=== PATIENT | female | born 1940 | race Caucasian/White ===

== ENCOUNTER → 2019-04-17 | Outpatient (CLI) | payer OTHER | LOC: RAD 09:32 | DX: D86.0 Sarcoidosis of lung (principal); R13.10 Dysphagia, unspecified ==

== ENCOUNTER → 2019-04-27 | Outpatient (CLI) | payer OTHER | LOC: RAD 10:32 → SPEECH 14:31 | PROVIDERS: Internal Medicine | DX: D86.0 Sarcoidosis of lung (principal); R13.12 Dysphagia, oropharyngeal phase; R91.8 Other nonspecific abnormal finding of lung field; J90 Pleural effusion, not elsewhere classified ==

== ENCOUNTER → 2019-06-16 | Outpatient (CLI) | payer OTHER | LOC: SJCVC 15:02 | DX: I45.10 Unspecified right bundle-branch block (principal); R94.31 Abnormal electrocardiogram [ECG] [EKG]; E78.5 Hyperlipidemia, unspecified; D86.9 Sarcoidosis, unspecified; Z79.899 Other long term (current) drug therapy ==

== ENCOUNTER → 2019-08-10 | Outpatient (CLI) | payer OTHER ==
[~2019-08-10] MED LIST: ADULT ASPIRIN R81 MG PO; ANORO ELLIPTA1 EACH INH; CELEXA 20 MG TA20 MG PO; CLARITIN10 M3 PO; FIORINAL 50-321 EACH PO; FUROSEMIDE 40 M40 MG PO; IMDUR 30 MG TAB30 M1 PO; IMITREX 50 MG T50 MG PO; LIPITOR 20 MG T20 M1 PO; MECLIZINE HCL25 M1 PO; NITROSTAT0.4 M1 SUBLING; POTASSIUM20 PO; PREDNISONE 5 MG5 M1 PO; PROAIR HFA8.5 GM INH; PROCHLORPERAZIN10 MG PO; TRAZODONE HCL100 MG PO; VITAMIN D31250 MCG PO
== END ==
LOC: SJCVCIMAG 07-08 08:21
DX: I34.0 Nonrheumatic mitral (valve) insufficiency (principal); I51.7 Cardiomegaly; D86.9 Sarcoidosis, unspecified; Z79.82 Long term (current) use of aspirin; Z79.899 Other long term (current) drug therapy; M85.80 Other specified disorders of bone density and structure, unspecified site

== ENCOUNTER → 2019-08-13 | Outpatient (CLI) | payer OTHER ==
[~2019-08-13] VITALS: Ht 154.9 cm; Wt 70.3 kg
[2019-08-13 08:53] VITALS: BP 128/54
[2019-08-13 08:53] LABS: HEMATOCRIT 39.2 % (37.0-47.0); HEMOGLOBIN 13.5 gm/dL (12.0-15.0); MCH 31.6 pg (26.0-34.0); MCHC 34.4 g/dL (28.0-37.0); MCV 91.8 fL (80.0-100.0); RBC 4.27 mil/uL (4.20-5.00); RDW 14.1 % (10.5-14.5); WBC 7.4 thou/uL (4.0-11.0)
[2019-08-13 10:15] LABS: CALCIUM 8.8 mg/dL (8.5-10.1); POTASSIUM 3.8 mmol/L (3.5-5.1)
--- NOTE | 2019-08-19 13:03 | CATHLAB ---
[facility] [place] [address] INVASIVE PROCEDURE REPORT Name: KELLEY HOLLOWAY Room #: REG LEON Julio Cesar#: [id number] Admission: 08/13/19 Attend Phys: Jatin Carlin Discharge: Date of : 44 Report #: [id number] THIS REPORT FOR: cc: Josi Virk MD, Nora P. MD Lammoglia, Francisco J. MD ~ APPROVED REPORT Study performed: 08/13/2019 09:34:05 Patient Details Patient Status: Out-Patient Room #: The patient is a 79 year-old female Event Personnel Jatin Carlin Taping Machine Operator, Lisa Nguyen RN, Micha Marte RTR ScrRory vora Sherra RTJarrod Monitor Procedures Performed Art Access - R femoral artery* Left Heart Cath w/or w/o Coronaries [id number] [facility] [id number] Initial Mod Sed Same Phys/QHP Gr [id number] Mod Sed Same Phys/QHP Ea [id number] Hemostasis with Manual pressure, supervision of conscious sedation Indication Positive stress test, Chest pain Procedure Narrative The Right Groin^ was infiltrated with 1% Lidocaine subcutaneous anesthesia. A PINNACLE 4FR Sheath #[id number] sheath was inserted into the RFA^. Coronary angiography was performed using coronary diagnostic catheters. The right coronary system was accessed and visualized with a JR4 catheter. The left coronary system was accessed and visualized with a JL4 catheter. The left ventricle was accessed and visualized with a PIGTAIL catheter. Hemostasis was obtained with manual pressure following sheath removal without any complications. The patient tolerated the procedure well and there were no complications associated with the procedure. There was no hematoma. Intraoperative Conscious Sedation Sedation start time: 1013 Case end Time: 1040 Versed 2 mg [facility] [address] [place] [address] INVASIVE PROCEDURE REPORT Name: KELLEY HOLLOWAY Room #: REG Julio Cesar#: [id number] Admission: 08/13/19 Attend Phys: Jatin Lamb Discharge: Date of : 44 Report #: [id number] Fluoro Time: 4.00 minutes Dose: DAP 5325.00 cGycm2 939 mGy Contrast Type and Amount: Omnipaque 45 ml Coronary Angiography The patient's coronary anatomy is right dominant. Diagnostic Cath Left Main Normal origin moderate caliber bifurcates left anterior descending left circumflex free of high-grade disease LAD Small to moderate caliber type II vessel which courses in the interventricular sulcus. Gives rise to an early diagonal branch which is free of high-grade disease. And continues on any sulcus towards the apex giving rise to small septal and diagonal branches free of high-grade disease. In its midportion there appears to be a myocardial bridge as an incidental finding Diagonal 1 Small caliber vessel without high-grade lesion although there is an ostial tapering it is not significant. No obstructive lesions are noted Circumflex Large-caliber vessel gives rise of marginal branches of moderate-sized proximally then continues on to the posterior lateral aspect of the heart giving rise to a smaller marginal branch and terminates a small posterior wall vessel. There is luminal irregularities noted but no high-grade lesions Right Coronary Large-caliber vessel normal origin gives rise to early sinus node branch is free of high-grade disease. Continues in the AV groove to the acute margin with a small to moderate caliber RV marginal branch arises coursing along the left lateral aspect of the right ventricular margin free of high-grade disease. The RCA proper continues at the crux of the heart gives rise to a moderate caliber posterior descending artery that rapidly tapers in its distal third but is free of high-grade disease. RCA then terminates in a small posterior wall branch artery to the AV node R PDA Moderate caliber vessel without high-grade lesions noted Left Ventriculography Left Ventriculography was not performed. Hemodynamics The aortic pressure is 126/59 mmHg with a mean of 81 mmHg. The left ventricular pressure is 184/15 mmHg with a mean of mmHg. The left ventricular end diastolic pressure is 21 mmHg. Conclusion 1. 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 Normal hemodynamics Recommendations Cardiac Risk Reduction Program Medical Therapy <ELECTRONICALLY SIGNED> By: Jatin Carlin MD 08/19/19 1301 00 130 Jatin Carlin MD /INF
== END | disposition home or self-care (01) ==
LOC: CATH 07:56
PROVIDERS: Internal Medicine
DX: R07.9 Chest pain, unspecified (principal); R94.39 Abnormal result of other cardiovascular function study; E78.00 Pure hypercholesterolemia, unspecified; G43.909 Migraine, unspecified, not intractable, without status migrainosus; J44.9 Chronic obstructive pulmonary disease, unspecified; M85.80 Other specified disorders of bone density and structure, unspecified site; Z98.890 Other specified postprocedural states; Z79.899 Other long term (current) drug therapy; Z86.73 Personal history of transient ischemic attack (TIA), and cerebral infarction without residual deficits; Z87.442 Personal history of urinary calculi; Z90.710 Acquired absence of both cervix and uterus; Z79.82 Long term (current) use of aspirin

== ENCOUNTER → 2019-09-08 | Outpatient (CLI) | payer OTHER | LOC: SJCVC 14:03 | DX: R07.9 Chest pain, unspecified (principal); R06.09 Other forms of dyspnea; E78.5 Hyperlipidemia, unspecified; D86.9 Sarcoidosis, unspecified; F41.9 Anxiety disorder, unspecified; G47.00 Insomnia, unspecified; Z90.710 Acquired absence of both cervix and uterus; Z79.899 Other long term (current) drug therapy ==

== ENCOUNTER 2020-04-04 12:49 | Inpatient (IN) | payer OTHER ==
[~2020-04-04] VITALS: Ht 157.5 cm; Wt 74.8 kg
[2020-04-04 12:55] VITALS: BP 159/56
[2020-04-04 14:19] LABS: ABSOLUTE NEUTROPHILS 9.3 thou/uL (1.4-8.2); HEMATOCRIT 39.5 % (37.0-47.0); HEMOGLOBIN 13.5 gm/dL (12.0-15.0); LYMPHOCYTES 2.2 % (24.0-44.0); MCH 30.2 pg (26.0-34.0); MCHC 34.2 g/dL (28.0-37.0); MCV 88.4 fL (80.0-100.0); PLATELET COUNT 268 thou/uL (150-400); POLYS 91.8 % (36.0-66.0); RBC 4.47 mil/uL (4.20-5.00); RDW 13.1 % (10.5-14.5); WBC 10.1 thou/uL (4.0-11.0)
[2020-04-04 14:42] LABS: CALCIUM 9.6 mg/dL (8.5-10.1); CREATININE 0.9 mg/dL (0.6-1.0); POTASSIUM 3.4 mmol/L (3.5-5.1)
[2020-04-04 14:47] LABS: ALBUMIN 3.1 g/dL (3.4-5.0); DIRECT BILIRUBIN 0.1 mg/dL (<0.1-0.2); TOTAL BILIRUBIN 0.6 mg/dL (0.2-1.0)
[2020-04-04 15:17] LABS: URINE BILIRUBIN NEGATIVE (Negative); URINE BLOOD 2+ (Negative); URINE COLOR YELLOW; URINE GLUCOSE-RANDOM* NEGATIVE (Negative); URINE KETONES 1+ (Negative); URINE NITRITE-REFLEX NEGATIVE (Negative); URINE PROTEIN (DIPSTICK) 2+ (Negative); URINE SPECIFIC GRAVITY >= 1.030 (1.005-1.035); URINE UROBILINOGEN 0.2 E.U./dl (0.2-1.0)
[2020-04-04 15:18] LABS: URINE LEUKOCYTES-REFLEX 3+ (Negative)
[2020-04-04 15:19] LABS: URINE CLARITY HAZY
[2020-04-04 15:46] LABS: SQUAMOUS 0-3 Few /LPF (0-3); URINE WBC-REFLEX >25 Many /HPF (0-5)
[2020-04-04 15:47] LABS: CASTS None Seen /LPF (None Seen); CRYSTALS None Seen /LPF (None Seen); URINE RBC 3-10 Few /HPF (0-2)
[2020-04-05 04:13] LABS: HEMATOCRIT 38.3 % (37.0-47.0); HEMOGLOBIN 12.9 gm/dL (12.0-15.0); MCH 29.9 pg (26.0-34.0); MCHC 33.8 g/dL (28.0-37.0); MCV 88.3 fL (80.0-100.0); RBC 4.33 mil/uL (4.20-5.00); RDW 13.1 % (10.5-14.5); WBC 3.8 thou/uL (4.0-11.0)
[2020-04-05 04:18] LABS: CALCIUM 9.4 mg/dL (8.5-10.1); CREATININE 0.8 mg/dL (0.6-1.0); MAGNESIUM 2.1 mg/dL (1.8-2.4); POTASSIUM 3.5 mmol/L (3.5-5.1)
[2020-04-05 08:00] VITALS: BP 135/48
[2020-04-05 12:58] VITALS: BP 114/46
--- NOTE | 2020-04-05 14:53 | NUR ---
79-year-old female with sarcoidosis. She was recently diagnosed with COVID-19 on March 28. 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 She sees Dr. Daniel De Guzman with pulmonary for her sarcoidosis. She states that today she started feeling very short of breath. She usually uses 2 L of oxygen however she saw that her sats went down to 79% after she got out of the shower. She increased her oxygen to 3 L however this did not bring up her oxygen level that much. She decided to come to the hospital. The patient was found by PCR to be COVID Positive, UA reveals greater than 25K WBC's, and WBC is 10.1. D-dimer is high at 1.48. CXR reveals: "Moderate bilateral perihilar mixed interstitial and alveolar infiltration, similar in pattern but progressed since May of 2106. Small left pleural effusion and normal heart size." The patient was admitted by hospitalist Dr. Alejandro for: Acute on chronic respiratory failure with bilateral infiltrates possibly from worsening sarcoidosis versus viral or bacterial infection. Consults for pulmonary have been called in. Plan is to administer IV Antibiotics, IV steroids, Remdesiver, Ivermectin and Respiratory breathing treatments. Sister Blanca Valenzuela as friend is listed as contact at [phone]. 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 Notably patient remains alert and oriented times 4. CM will follow for discharge needs.
[2020-04-05 16:25] VITALS: BP 120/50
[2020-04-05 18:51] VITALS: BP 124/61
[2020-04-05 20:06] VITALS: BP 141/52
[2020-04-05 20:34] VITALS: BP 158/76
--- NOTE | 2020-04-06 00:16 | NUR ---
PT ADMITTED FROM ED. 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 PT STATED THEY WERE TRANSFERRING A POSITIVE COVID PT, WITH PPE AND TESTED POSITIVE THE FOLLOWING DAY 03/28/20. PT REPORTED INCREASING SOA AND NEED TO INCREASE HER O2 NC FROM 2L TO 4L. LUNGS WITH WHEEZES COUGH. SOA WITH TALKING. INDEP STEADY GAIT. IV ANTIBIOTICS PROVIDED. STRESS INCONTINENCE FROM COUGHING. NEW IV STARTED IN LFA.
[2020-04-06 00:17] VITALS: BP 110/73
[2020-04-06 05:15] VITALS: BP 119/40
[2020-04-06 06:21] LABS: ABSOLUTE NEUTROPHILS 11.9 thou/uL (1.4-8.2); BASOPHILS 0.1 % (0.0-2.0); HEMATOCRIT 37.2 % (37.0-47.0); HEMOGLOBIN 12.5 gm/dL (12.0-15.0); LYMPHOCYTES 3.5 % (24.0-44.0); MCH 29.9 pg (26.0-34.0); MCHC 33.7 g/dL (28.0-37.0); MCV 88.8 fL (80.0-100.0); MONOCYTES 4.9 % (1.0-8.0); PLATELET COUNT 343 thou/uL (150-400); POLYS 91.5 % (36.0-66.0); RBC 4.19 mil/uL (4.20-5.00); RDW 13.5 % (10.5-14.5)
[2020-04-06 06:42] LABS: PROTIME 10.5 Seconds (9.3-11.4)
[2020-04-06 06:47] LABS: ALBUMIN 2.6 g/dL (3.4-5.0); CALCIUM 9.1 mg/dL (8.5-10.1); CREATININE 0.8 mg/dL (0.6-1.0); POTASSIUM 3.5 mmol/L (3.5-5.1); TOTAL BILIRUBIN 0.2 mg/dL (0.2-1.0); TOTAL PROTEIN 6.3 g/dL (6.4-8.2)
[2020-04-06 06:52] LABS: DIRECT BILIRUBIN < 0.1 mg/dL (<0.1-0.2); MAGNESIUM 2.5 mg/dL (1.8-2.4); PHOSPHORUS 3.5 mg/dL (2.6-4.7)
[2020-04-06 08:34] VITALS: BP 134/46
--- NOTE | 2020-04-06 10:23 | NUR ---
ORDERS RECEIVED FOR EVAL AND TREAT. SPOKE WITH Pt AND SHE STATES SHE IS GETTING UP ON HER OWN IN THE ROOM AND HAVING NO DIFFICULTY. STATES SHE IS VERY ACTIVE AND IS DETERMINED TO STAY ACTIVE. Pt IS DECLINING A FORMAL P.T. EVAL STATING SHE DOESN'T NEED IT BUT WILL LET NURSING KNOW IF SHE STARTS HAVING ANY PROBLEMS
--- NOTE | 2020-04-06 15:20 | NUR ---
INITIAL ASSESSMENT: Received consult. SW reviewed chart and spoke with nursing and attending physician. Pt was admitted from home due to pneumonia. Pt placed in Enhanced Isolation due to COVID-19. Pt is afebrile and on 2L of O2. Pt is on IV abx and IV steroids. Pt is completing courses of Remdesivir and Ivermectin. SW placed call to pt's room. No answer. Per chart, pt is alert/orientated x 4. 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 Prior to admission, pt was independent with ADLs. Pt does have home O2. Pt's PCP is Dr. Josi Virk. Pt sees Dr. Jan De Guzman for pulmonology. Plan is for pt to discharge home when medically stable. SW will follow up with pt to discuss discharge plan.
[2020-04-06 15:45] VITALS: BP 111/56
--- NOTE | 2020-04-06 18:36 | NUR ---
ASSUMED PATIENT CARE AT 0700. SOB WITH EXERTION. A/O X4. SLOWLY TOWARDS TO POC GOALS.
[2020-04-06 19:45] VITALS: BP 133/61
--- NOTE | 2020-04-06 22:00 | NUR ---
PT INCREASE IN COARSE LUNG SOUNDS AND WHEEZING AFTER AMBULATION TO RESTROOM AND WHILE TALKING. 02 PER NC 4L. PT DECLINED HS SNACK. PROIVDER UPDATED.
--- NOTE | 2020-04-07 00:33 | NUR ---
ID UPDATED DURING HIS ROUNDS RE PTS LUNG SOUNDS. NEW ORDERS OBTAINED. PROVIDER ESTATE PLANNER UPDATED REGARDING NEW ORDERS. PT REQUESTING PRN FOR ANXIETY AND HOME MED RESTARTED, PROVIDER LEFT VOICE MAIL.
[2020-04-07 04:54] VITALS: BP 131/58
[2020-04-07 06:38] LABS: ABSOLUTE NEUTROPHILS 7.7 thou/uL (1.4-8.2); BASOPHILS 0.1 % (0.0-2.0); HEMATOCRIT 35.3 % (37.0-47.0); LYMPHOCYTES 1.3 % (24.0-44.0); MCHC 33.9 g/dL (28.0-37.0); MCV 88.4 fL (80.0-100.0); MONOCYTES 5.1 % (1.0-8.0); PLATELET COUNT 334 thou/uL (150-400); POLYS 93.5 % (36.0-66.0); RDW 13.3 % (10.5-14.5); WBC 8.3 thou/uL (4.0-11.0)
[2020-04-07 06:56] LABS: ALBUMIN 2.6 g/dL (3.4-5.0); DIRECT BILIRUBIN < 0.1 mg/dL (<0.1-0.2); MAGNESIUM 2.4 mg/dL (1.8-2.4); PHOSPHORUS 3.5 mg/dL (2.6-4.7); SGOT 19 U/L (15-37); SGPT 18 U/L (14-59); TOTAL BILIRUBIN 0.3 mg/dL (0.2-1.0); TOTAL PROTEIN 5.9 g/dL (6.4-8.2)
[2020-04-07 06:57] LABS: ALBUMIN 2.6 g/dL (3.4-5.0); CALCIUM 8.7 mg/dL (8.5-10.1); CREATININE 0.8 mg/dL (0.6-1.0); TOTAL BILIRUBIN 0.2 mg/dL (0.2-1.0); TOTAL PROTEIN 5.9 g/dL (6.4-8.2)
[2020-04-07 07:04] LABS: POTASSIUM 2.8 mmol/L (3.5-5.1)
[2020-04-07 07:42] VITALS: BP 144/53
--- NOTE | 2020-04-07 15:00 | NUR ---
SW reviewed chart and spoke with nursing and attending physician. Pt remains in Enhanced Isolation due to COVID-19. Pt is afebrile and requiring 3L of O2. Pt is on IV abx and IV steroids. Pt is completing courses of Remdesivir and Ivermectin. No weekend discharge planned. SW placed call into pt's room. No answer. LASHON is following to assist as needed with discharge planning.
[2020-04-07 15:47] VITALS: BP 136/58
--- NOTE | 2020-04-07 18:28 | NUR ---
PATIENT A/O X4. INCREASED SOB AND WHEZZY. VSS. ON 4L/NC. WILL KEEP MONITOR.
[2020-04-07 21:18] VITALS: BP 131/54
--- NOTE | 2020-04-08 04:15 | NUR ---
resting quietly tonight. she has been laying in a prone postion for breathing. denies pain. continues on iv antibiotic. took her last dose of ivermectin tongtsering. encouraged questions and explained treaments. jose reviewed/
[2020-04-08 04:58] VITALS: BP 153/62
[2020-04-08 07:13] VITALS: BP 105/93
[2020-04-08 09:27] LABS: HEMATOCRIT 37.7 % (37.0-47.0); HEMOGLOBIN 12.7 gm/dL (12.0-15.0); MCHC 33.7 g/dL (28.0-37.0); MCV 89.1 fL (80.0-100.0); RBC 4.23 mil/uL (4.20-5.00); RDW 13.8 % (10.5-14.5); WBC 9.3 thou/uL (4.0-11.0)
[2020-04-08 09:43] LABS: ANION GAP 12 mmol/L (7-16); BUN 26 mg/dL (7-18); CALCIUM 9.2 mg/dL (8.5-10.1); CHLORIDE 105 mmol/L (98-107); CO2 26 mmol/L (21-32); CREATININE 0.9 mg/dL (0.6-1.0); DIRECT BILIRUBIN < 0.1 mg/dL (<0.1-0.2); GLUCOSE 202 mg/dL (74-106); MAGNESIUM 2.7 mg/dL (1.8-2.4); PHOSPHORUS 2.7 mg/dL (2.5-4.9); POTASSIUM 3.7 mmol/L (3.5-5.1); SGOT 20 U/L (15-37); SGPT 27 U/L (30-65); SODIUM 143 mmol/L (136-145); TOTAL BILIRUBIN 0.4 mg/dL (0.2-1.0); TOTAL PROTEIN 6.4 g/dL (6.4-8.2)
[2020-04-08 15:42] VITALS: BP 141/61
--- NOTE | 2020-04-08 18:33 | NUR ---
PROGRESSING TOWARDS POC GOALS.
[2020-04-08 19:56] VITALS: BP 151/66
--- NOTE | 2020-04-08 21:05 | HC ---
[facility] [place] [address] CONSULTATION Name: KELLEY HOLLOWAY Room #: 358-P ADM IN M.R.#: [id number] Admission: 04/04/20 Attend Phys: Theron Alejandro MD Discharge: Date of : 44 Report #: [id number] THIS REPORT FOR: cc: Josi Virk MD, Nora P. MD Geha, Daniel J. MD ~ DATE OF SERVICE: 04/05/2020 INFECTIOUS DISEASE CONSULTATION REASON FOR CONSULTATION: I was asked to evaluate concerning COVID-19 pneumonia. 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 She has underlying sarcoidosis of the lungs, on 10 mg of prednisone a day with good control. She is on 2 liters of oxygen per nasal cannula as her baseline. She has had increased shortness of breath, nonproductive cough, anorexia, diarrhea, mild abdominal discomfort and 1 episode of vomiting. Her cough has been without hemoptysis. No chest pain. Mild headache. No loss of taste or smell. Denies any rash or arthritis. Several members of her senior care resident, ____ and employees have come down with COVID-19. REVIEW OF SYSTEMS: A 14-point review of system was negative other than what has been described above. ALLERGIES: None known. MEDICATIONS: As noted on her MAR, having been started on antiviral program and corticosteroids have been increased. PAST MEDICAL HISTORY: Sarcoidosis, decreased hearing, hyperlipidemia, kidney stones, migraine headaches, osteopenia, prediabetic, PE, vertigo, hysterectomy, open lung biopsy. FAMILY HISTORY: Negative for tuberculosis. SOCIAL HISTORY: Nonsmoker, no significant alcohol intake. PHYSICAL EXAMINATION: VITAL SIGNS: Afebrile and hemodynamically stable. GENERAL: Alert and cooperative. She was in no distress, sitting up in bed. She did become short of breath with talking. She was of normal weight. SKIN: Without rash. No palpable adenopathy. EYES: Without scleral icterus. MOUTH: Without mucositis. [facility] [address] [place] [address] CONSULTATION Name: KELLEY HOLLOWAY Room #: 358-P [facility] IN .R.#: [id number] Admission: 04/04/20 Attend Phys: Theron Alejandro MD Discharge: Date of : 44 Report #: [id number] NECK: Supple. LUNGS: Coarse breath sounds posteriorly throughout her lung adorno. No other adventitial sounds. HEART: Regular, without murmur, gallop or rub. ABDOMEN: Soft, nontender with no hepatosplenomegaly or mass. GENITORECTAL: Not performed. EXTREMITIES: Without clubbing, cyanosis or edema. NEUROLOGIC: Cranial nerves intact. Strength in the upper and lower extremities was within normal limits and symmetric. LABORATORY STUDIES: Reviewed. MICROBIOLOGY: Reviewed. IMAGING: Chest x-ray reviewed. IMPRESSION: 1. COVID-19 pneumonia complicating underlying sarcoidosis with worsening oxygenation and generalized weakness. 2. Immunosuppressed due to corticosteroids for her sarcoidosis. 3. History of pulmonary embolus. 4. Hypokalemia. RECOMMENDATION: We will continue current antibiotic program in addition to her antiviral therapy with increased corticosteroids. I have discussed treatment options with her. We will plan to go with steroids, remdesivir, ivermectin and multivitamins. We will follow serial chest x-ray. Follow laboratory studies including creatinine and liver function test. The patient will remain on the COVID isolation unit for cardiopulmonary monitoring. <ELECTRONICALLY SIGNED> By: Johnathan Holden MD 04/08/20 2105 [id number] Johnathan Holden MD /nt
--- NOTE | 2020-04-09 02:00 | NUR ---
ASSESSED AT START OF SHIFT. PT RESTING IN BED. A&OX4. ON 4L OF OXYGEN. PT STATED HAD [address] BM'[address] D[address]ING THE DAY. DR ELLSWORTH ORDERED SOME IMMODIUM. PT UP TO THE BSC. LUNGS SOUNDS WHEEZING. GETS SCHEDULED BREATHING TREATMENT. EVENING MEDS GIVEN AND PT RADHA IT WELL. CALL LIGHT AT REACH. CODE STATUS CHANGED TO INTUBATION ONLY AFTER PT DISCUSSED WITH DR ELLSWORTH. WILL CONT TO MONITOR TILL EOS.
[2020-04-09 04:02] VITALS: BP 148/67
[2020-04-09 06:03] LABS: ALBUMIN 2.8 g/dL (3.4-5.0); ANION GAP 9 mmol/L (7-16); BUN 25 mg/dL (7-18); CALCIUM 9.1 mg/dL (8.5-10.1); CHLORIDE 102 mmol/L (98-107); CO2 25 mmol/L (21-32); CREATININE 0.8 mg/dL (0.6-1.0); DIRECT BILIRUBIN < 0.1 mg/dL (<0.1-0.2); GLUCOSE 216 mg/dL (74-106); PHOSPHORUS 3.3 mg/dL (2.6-4.7); POTASSIUM 4.1 mmol/L (3.5-5.1); SGOT 21 U/L (15-37); SGPT 26 U/L (14-59); SODIUM 136 mmol/L (136-145); TOTAL BILIRUBIN 0.4 mg/dL (0.2-1.0); TOTAL PROTEIN 5.9 g/dL (6.4-8.2)
[2020-04-09 07:04] VITALS: BP 149/68
[2020-04-09 15:36] VITALS: BP 153/67
[2020-04-09 19:25] VITALS: BP 125/71
[2020-04-10 05:23] VITALS: BP 154/62
[2020-04-10 06:03] LABS: HEMATOCRIT 37.5 % (37.0-47.0); HEMOGLOBIN 12.7 gm/dL (12.0-15.0); MCHC 33.8 g/dL (28.0-37.0); MCV 88.9 fL (80.0-100.0); PLATELET COUNT 401 thou/uL (150-400); RBC 4.21 mil/uL (4.20-5.00); RDW 13.6 % (10.5-14.5); WBC 7.4 thou/uL (4.0-11.0)
--- NOTE | 2020-04-10 06:07 | NUR ---
VSS THROUGHOUT SHIFT, NO FEVER, AND PT 02 WAS AT 4L. PT UP AD KELBY. PT IS ILIAMNA. CALL LIGHT WITHIN REACH.
[2020-04-10 06:15] LABS: CALCIUM 9.2 mg/dL (8.5-10.1); CREATININE 0.8 mg/dL (0.6-1.0); MAGNESIUM 2.5 mg/dL (1.8-2.4); PHOSPHORUS 3.4 mg/dL (2.6-4.7); POTASSIUM 4.4 mmol/L (3.5-5.1)
[2020-04-10 07:23] VITALS: BP 142/123; BP 161/68
[2020-04-10 09:54] LABS: ABSOLUTE NEUTROPHILS 6.7 thou/uL (1.4-8.2); METAMYELOCYTES 4 %
[2020-04-10 09:55] LABS: ANISOCYTOSIS 1+
[2020-04-10 15:30] VITALS: BP 149/57
--- NOTE | 2020-04-10 18:01 | NUR ---
A #4F MIDLINE WAS PLACED PER PROTOCOL. LINE WAS TRIMMED TO 15 CM AND ADVANCED WITHOUT DIFFICULTY. THE LEFT MIDLINE WAS SECURED AND RELEASED FOR USE
[2020-04-10 20:05] VITALS: BP 173/85
[2020-04-11 03:33] VITALS: BP 156/61
[2020-04-11 04:05] LABS: GLYCOHEMOGLOBIN (HGB A1C) 6.3 % (4.8-5.6)
--- NOTE | 2020-04-11 07:07 | NUR ---
VSS, AFEBRILE. POC W/IVPB ANTIBIOTICS AND 02 SATURATION IS THE FOCUS. PT IS ON 4L VIA NC. PT REQUESTED LORAZEPAM AND STATES SHE IS STILL HAVING SOME EPISODES OF DIARRHEA. HOURLY ROUNDING.
[2020-04-11 07:38] VITALS: BP 168/68
--- NOTE | 2020-04-11 14:30 | NUR ---
Pt seen for LOS. Pt appears with fair to good appetite, consuming 50-100% of meals at present. Wt gain noted from admit (150-167#). No c/o GI distress, last BM 04/08/20. No PU noted. Pt remains at low nutrtition risk.
--- NOTE | 2020-04-11 14:39 | NUR ---
LASHON reviewed chart and spoke with nursing and attending physician. Pt remains in Enhanced Isolation due to COVID-19. Pt is afebrile and on 2L of O2. Pt is on IV abx and IV steroids. Discharge home is anticipated for tomorrow. LASHON spoke with pt via phone to discuss discharge. Pt is aware and agreeable with plan. Pt has a home O2 concentrator that she owns. Pt has a portable concentrator through [employer]. Pt states she will have transportation home when discharged. Pt declines having any other discharge needs. LASHON is following to assist as needed with discharge planning.
[2020-04-11 15:03] VITALS: BP 146/68
[2020-04-11 19:57] VITALS: BP 143/81
--- NOTE | 2020-04-11 21:41 | NUR ---
PT ALERT AND ORIENTED X4. VSS AFEBRILE. C/O DRY NOSE WITH SMALL AMT BLOOD TINGED DRAINAGE. NOTIFIED RT TO APPLY HUMIDIFED AIR TO TUBING. ATIVAN GIVEN FOR ANXIETY REQUESTED. PT IS RESTING QUIETLY. NO S/S DISTRESS.
[2020-04-12 04:15] VITALS: BP 132/84
--- NOTE | 2020-04-12 05:18 | NUR ---
PT ALERT AND ORIENTED X4 . VSS AFEBRILE. UNLABORED ON 4LNC. NO S/S DISTRESS.PT RESTING IN BED EATING PEACH YOGURT.OGRESSING TOWARDS D/C GOALS.
[2020-04-12 08:01] VITALS: BP 130/69
--- NOTE | 2020-04-12 14:19 | NUR ---
SW reviewed chart and spoke with nursing and attending physician. Pt remains in Enhanced Isolation due to COVID-19. Pt is afebrile and requiring 4L of O2. Pt is on IV abx and IV steroids. Pt is not ready for discharge home today. Anticipate discharge home tomorrow. LASHON is following to assist as needed with discharge planning.
[2020-04-12 15:25] VITALS: BP 125/75
[2020-04-12 19:23] VITALS: BP 130/72
--- NOTE | 2020-04-12 20:57 | NUR ---
PT UP IN CHAIR.O2 NC 4L. PT REMAINS SOA WITH TALKING AND EXERTION BUT NO AUDIBLE WHEEZES. LUNGS WHEEZES IN BASES. BLE EDEMA +3. PT VERBALIZED HAVING LASIX AND PLAN TO USE BSC. PT DISCUSSED POSSIBLE DC IN AM. PROVIDED HS SNACK.
[2020-04-13 03:25] VITALS: BP 133/67
--- NOTE | 2020-04-13 06:28 | NUR ---
CHIEF CLIENT OFFICER STATED COVID PATIENTS CAN NOT GO DOWN FOR A 2 VIEW SO HE IS COMPLETING A PCXR.
[2020-04-13 06:29] LABS: ABSOLUTE NEUTROPHILS 6.5 thou/uL (1.4-8.2); BASOPHILS 0.2 % (0.0-2.0); HEMATOCRIT 35.7 % (37.0-47.0); HEMOGLOBIN 12.2 gm/dL (12.0-15.0); LYMPHOCYTES 3.2 % (24.0-44.0); MCH 30.2 pg (26.0-34.0); MCHC 34.1 g/dL (28.0-37.0); MCV 88.6 fL (80.0-100.0); MONOCYTES 7.7 % (1.0-8.0); PLATELET COUNT 349 thou/uL (150-400); POLYS 88.9 % (36.0-66.0); RBC 4.03 mil/uL (4.20-5.00); RDW 13.3 % (10.5-14.5); WBC 7.3 thou/uL (4.0-11.0)
[2020-04-13 06:41] LABS: ALBUMIN 2.4 g/dL (3.4-5.0); CALCIUM 8.7 mg/dL (8.5-10.1); CREATININE 0.8 mg/dL (0.6-1.0); POTASSIUM 4.1 mmol/L (3.5-5.1); TOTAL BILIRUBIN 0.5 mg/dL (0.2-1.0)
[2020-04-13 07:26] VITALS: BP 122/72
[2020-04-13] MEDS ORDERED: PEPCID20 MG PO (10:23)
[2020-04-13] MEDS ORDERED: VITAMIN B-1100 M2 PO (10:23)
[2020-04-13] MEDS ORDERED: MUCINEX600 MG PO (10:23)
[2020-04-13] MEDS ORDERED: METOPROLOL TART25 MG PO (10:23)
[2020-04-13] MEDS ORDERED: ACEROLA C500 MG PO (10:23)
[2020-04-13] MEDS ORDERED: LORAZEPAM 0.50.5 MG PO (10:23)
[2020-04-13] MEDS ORDERED: IPRAT-ALBUT 0.5-3 ML INH (10:23)
[2020-04-13] MEDS ORDERED: LEVOFLOXACIN500 MG PO (10:23)
[2020-04-13] MEDS ORDERED: ZINC SULFATE 2220 MG PO (10:23)
[2020-04-13] MEDS ORDERED: PREDNISONE 20 M20 MG PO (10:31)
[2020-04-13 14:47] VITALS: BP 122/72
--- NOTE | 2020-04-13 14:56 | NUR ---
SW reviewed chart and spoke with nursing and attending physician. Pt remains in Enhanced Isolation due to COVID-19. Pt is medically stable for discharge home today. SW placed call to pt's room. No answer. Pt will have transportation home when discharged. No SW needs identified at this time, but is available to assist should needs arise.
[2020-04-13 15:01] VITALS: BP 122/72
[2020-04-13] MEDS ORDERED: NEBULIZER MISCELL ×7 (15:31→15:50)
== END 2020-04-13 16:44 | disposition home or self-care (01) | DRG 871 ==
LOC: ER 12:49 → 3W 17:02 → EROBS 17:02 → 3W 04-05 20:04
PROVIDERS: Internal Medicine; Nurse Practitioner; Specialist; ADMIT Internal Medicine; ATTEND Internal Medicine
PROC: XW033E5 Introduction of Remdesivir Anti-infective into Peripheral Vein, Percutaneous Approach, New Technology Group 5 (ICD-10-PCS; principal; 2020-04-05)
PROC: 05HC33Z Insertion of Infusion Device into Left Basilic Vein, Percutaneous Approach (ICD-10-PCS; 2020-04-10)
DX: A41.89 Other specified sepsis (principal); U07.1 COVID-19; J12.82 Pneumonia due to coronavirus disease 2019; J96.21 Acute and chronic respiratory failure with hypoxia; E44.1 Mild protein-calorie malnutrition; N39.0 Urinary tract infection, site not specified; D84.9 Immunodeficiency, unspecified; D86.9 Sarcoidosis, unspecified; E78.00 Pure hypercholesterolemia, unspecified; G43.909 Migraine, unspecified, not intractable, without status migrainosus; F34.1 Dysthymic disorder; E78.5 Hyperlipidemia, unspecified; E87.6 Hypokalemia; F32.9 Major depressive disorder, single episode, unspecified; F41.9 Anxiety disorder, unspecified; R73.9 Hyperglycemia, unspecified; T38.0X5A Adverse effect of glucocorticoids and synthetic analogues, initial encounter; Y92.89 Other specified places as the place of occurrence of the external cause; Z87.442 Personal history of urinary calculi; Z90.710 Acquired absence of both cervix and uterus; Z86.711 Personal history of pulmonary embolism; Z79.82 Long term (current) use of aspirin; Z79.899 Other long term (current) drug therapy; Z68.30 Body mass index [BMI] 30.0-30.9, adult
CPT/HCPCS: 10879; 27000

== ENCOUNTER → 2020-05-05 | Outpatient (CLI) | payer OTHER ==
[~2020-05-05] MED LIST changes: +ACEROLA C500 MG PO; +IPRAT-ALBUT 0.5-3 ML INH; +LEVOFLOXACIN500 MG PO; +LORAZEPAM 0.50.5 MG PO; +METOPROLOL TART25 MG PO; +MUCINEX600 MG PO; +NEBULIZER MISCELL; +PEPCID20 MG PO; +PREDNISONE 20 M20 MG PO; +VITAMIN B-1100 M2 PO; +ZINC SULFATE 2220 MG PO
== END ==
LOC: RAD 16:31
PROVIDERS: ATTEND Internal Medicine
DX: M48.02 Spinal stenosis, cervical region (principal); R07.81 Pleurodynia; D86.9 Sarcoidosis, unspecified

== ENCOUNTER → 2020-05-30 | Outpatient (CLI) | payer OTHER | LOC: MRI 10:29 | PROVIDERS: ATTEND Family Medicine | DX: S22.080A Wedge compression fracture of T11-T12 vertebra, initial encounter for closed fracture (principal); R93.7 Abnormal findings on diagnostic imaging of other parts of musculoskeletal system; X58.XXXA Exposure to other specified factors, initial encounter; Y93.89 Activity, other specified; Y92.89 Other specified places as the place of occurrence of the external cause; Y99.8 Other external cause status ==

== ENCOUNTER → 2020-06-28 | Outpatient (CLI) | payer OTHER | LOC: CAT 09:32 | PROVIDERS: ATTEND Internal Medicine | DX: J90 Pleural effusion, not elsewhere classified (principal); R91.8 Other nonspecific abnormal finding of lung field; R59.0 Localized enlarged lymph nodes; I31.1 Chronic constrictive pericarditis; D86.9 Sarcoidosis, unspecified; Z86.16 Personal history of COVID-19 ==

== ENCOUNTER → 2020-08-02 | Outpatient (CLI) | payer OTHER ==
--- NOTE | ~2020-08-02 | PFR/MVV ---
[facility] [place] [address] PULMONARY FUNCTION MVV/REPORT Name: KELLEY HOLLOWAY Room #: REG [facility].#: [id number] Admission: 08/02/20 Attend Phys: Daniel De Guzman MD Discharge: Date of : 44 Report #: [id number] THIS REPORT FOR: //name// >> SPIROMETRY: (BTPS) Height: 65 in cm Weight: 62 lbs kg Exam Date: 08/02/20 PRE-RX POST-RX PRED BEST %PRED BEST %PRED %CHG FVC LITERS . 2.75 . 1.95 . 71 . 2.05 . 75 . 5 FEV1 LITERS . 1.90 . 1.46 . 77 . 1.45 . 76 . -1 FEV1/FVC % . 70 . 75 . 107 . 71 . 101 . -6 OVX06-53% L/Sec . 2.11 . 1.18 . 56 . 0.69 . 33 . -41 PEF L/SEC . 5.40 . 3.86 . 72 . 4.42 . 82 . 14 FEF50/FIF50 UNITLESS . <1.00 . 0.99 . . 0.72 . . -27 MVV L/Min . 78 . 61 . 78 f 1/Min . . 115 . >> LUNG VOLUMES: (BTPS) PRE-RX POST-RX PRED AVG %PRED AVG %PRED %CHG VC Liters . 2.75 . 5.64 . 205 . . . TLC Liters . 4.95 . 7.05 . 142 . . . RV Liters . 2.09 . 1.41 . 68 . . . RV/TLC % . 42 . 20 . 47 . . . FRC PL Liters . 3.56 . 2.00 . 56 . . . FRC N2 Liters . 3.56 . . . . . ERV Liters . 0.93 . 0.58 . 62 . . . IC Liters . 1.87 . 5.61 . 301 . . . >> DIFFUSION: DLCO ml/Min/mmHg . 10.0 . 6.9 . 69 . . . DL Swapna ml/Min/mmHg . 10.0 . 6.9 . 69 . . . DLCO/VA ml/Min/mmHg . 3.30 . 3.18 . 96 . . . VA Liters . . 2.19 . . . . COMMENTS: COMMENTS: >> RESISTANCE: [facility] [address] [place] [address] PULMONARY FUNCTION MVV/REPORT Name: JIM[facility]E [facility]CE [facility] Room #: REG Chema Harrell#: [id number] Admission: 08/02/20 Attend Phys: Daniel De Guzman MD Discharge: Date of : 44 Report #: [id number] PRE-RX PRED AVG %PRED Raw Total cmH20/L/Sec . . 2.19 . Raw Insp cmH20/L/Sec . . 1.26 . Raw Exp cmH20/L/Sec . . 2.09 . Raw cmH20/L/Sec . 1.05 . 1.78 . 169 Gaw L/Sec/cmH20 . 0.854 . 0.563 . 66 sRaw cmH20 Sec . 0.854 . 0.563 . 66 sGaw l/cmH20 Sec . 3.73 . 6.40 . 171 Vtq Liters . 0.268 . 0.156 . 58 # = OUTSIDE 95% CONFIDENCE INTERVAL CALIBRATION: PRED: 3.00 ACTUAL: EXP 3.01 INSP 3.02 [facility] N-[id number] >> INTERPRETATION/IMPRESSION: DOC #: [id number] Kane Yanez M.D. PULMONARY FUNCTION STUDIES PULMONARY FUNCTION STUDIES: FEV1 is 1.46 liters (77%). FVC is 1.95 liters (71%). The FEV1/FVC ratio is 75%. There is no significant response to bronchodilator therapy. Total lung capacity is 7.05 liters (142%). Residual volume is 1.41 liters (68%). IC to ERV ratio is increased 5.61 liters to 0.58 liters. IMPRESSION: Pulmonary function studies are suggestive of a mixed obstructive and restrictive airflow process. FEV1/FVC ratio is borderline with a mild obstruction and no significant response to bronchodilator therapy with evidence of moderate hyperinflation. IC to ERV ratio is increased suggestive of a pseudo-restriction. Diffusion capacity is normal. Would add that the pseudo-restriction likely disrupts the significance of the obstruction noted. Kane WHEELER/ELSIE/YFN By: Kane Yanez MD /nt
== END ==
LOC: PUL 09:57
PROVIDERS: ATTEND Internal Medicine
DX: D86.9 Sarcoidosis, unspecified (principal)

== ENCOUNTER → 2020-09-08 | Outpatient (CLI) | payer OTHER | LOC: MRI 09:01 | PROVIDERS: ATTEND Physical Medicine & Rehabilitation Sports Medicine | DX: S22.080A Wedge compression fracture of T11-T12 vertebra, initial encounter for closed fracture (principal); M70.61 Trochanteric bursitis, right hip; M51.16 Intervertebral disc disorders with radiculopathy, lumbar region; M48.061 Spinal stenosis, lumbar region without neurogenic claudication; X58.XXXA Exposure to other specified factors, initial encounter; Y92.89 Other specified places as the place of occurrence of the external cause; Y93.89 Activity, other specified; Y99.8 Other external cause status ==

== ENCOUNTER → 2021-04-11 | Outpatient (CLI) | payer OTHER ==
[2021-04-11 10:35] LABS: CREATININE 0.9 mg/dL (0.6-1.0)
== END | disposition home or self-care (01) ==
LOC: CAT 08:59
PROVIDERS: ATTEND Internal Medicine
DX: J90 Pleural effusion, not elsewhere classified (principal); R91.1 Solitary pulmonary nodule; D68.9 Coagulation defect, unspecified; R59.0 Localized enlarged lymph nodes